=== PATIENT | male | born 1985 | race African-American/Black ===

== ENCOUNTER 2019-12-05 23:24 | Emergency (ER) | payer MEDICAID ==
[~2019-12-05] VITALS: Ht 170.2 cm; Wt 79.4 kg
[2019-12-05 23:44] VITALS: BP 147/95
[2019-12-06 00:48] LABS: Urine Bacteria FEW /hpf (None Seen); Urine Blood Negative /uL (Negative); Urine Mucus FEW (None Seen); Urine Specific Gravity 1.026 (1.001-1.035); Urine WBC 52 /hpf (0 - 3)
[2019-12-06 01:02] LABS: Alcohol, Urine < 3.0 mg/dL (0-10); Amphetamine Screen, Urine NEGATIVE (NEGATIVE); Barbiturate Scree,Urine NEGATIVE (NEGATIVE); Benzodiazephine Screen, Urine NEGATIVE (NEGATIVE); Cannabinoid Screen, Urine NEGATIVE (NEGATIVE); Cocaine Screen, Urine NEGATIVE (NEGATIVE); Opiate Scree,Urine NEGATIVE (NEGATIVE); Phencyclidine Screen, Urine NEGATIVE (NEGATIVE)
== END 2019-12-06 05:25 | disposition left against medical advice (07) ==
LOC: ER 23:24
DX: R73.9 Hyperglycemia, unspecified (principal); R11.2 Nausea with vomiting, unspecified; Z53.21 Procedure and treatment not carried out due to patient leaving prior to being seen by health care provider
CPT/HCPCS: 80307; 81001; 82962

== ENCOUNTER 2020-01-05 22:19 | Emergency (ER) | payer MEDICAID ==
[~2020-01-05] VITALS: Ht 170.2 cm; Wt 79.4 kg
[2020-01-05 22:44] VITALS: BP 134/89
[2020-01-05 23:41] LABS: Basophils # (auto) 0 10 ^3/uL (0-0.2); Basophils % (auto) 0.5 % (0.0-2.0); Eosinophils # (auto) 0 10 ^3/uL (0-0.8); Eosinophils % (auto) 0.2 % (0.0-7.0); Hematocrit 47.1 % (41.0-53.0); Hemoglobin 15.5 g/dL (13.5-17.5); Lymphocytes # (auto) 1.4 10 ^3/uL (0.4-5.4); Lymphocytes % (auto) 17.2 % (10.0-50.0); Mean Corpuscular Hemoglobin 29.7 pg (28.0-32.0); Monocytes # (auto) 0.5 10 ^3/uL (0-1.3); Monocytes % (auto) 5.5 % (0.0-12.0); Neutrophils # (auto) 6.3 10 ^3/uL (1.6-8.6); Neutrophils % (auto) 76.6 % (37.0-80.0); Nucleated Red Blood Cells % 0.1 %; Platelet Count (auto) 111 10^3/uL (140-450); Red Blood Cells 5.24 10^6/uL (4.5-5.90); Red Cell Distribution Width 14.5 % (11.8-14.3); White Blood Cell 8.3 10^3/uL (4.4-10.8)
[2020-01-06] LABS: Albumin 4.2 g/dL (3.4-5.0); Amylase 61 U/L (25-115); Anion Gap 6 (5-15); Blood Urea Nitrogen 7 mg/dL (7-18); Calcium 7.8 mg/dL (8.5-10.1); Carbon Dioxide 28 mmol/L (21-32); Chloride 104 mmol/L (98-107); Glucose 200 mg/dL (74-106); Lipase 43 U/L (73-393); Magnesium 2.3 mg/dL (1.6-2.6); Potassium 3.9 mmol/L (3.5-5.1); Sodium 138 mmol/L (136-145)
[2020-01-06 00:05] LABS: BUN/Creatinine Ratio 7.1
[2020-01-06 00:06] LABS: Alanine Aminotransferase 21 U/L (16-61); Alkaline Phosphatase 81 U/L (45-117); Aspartate Aminotransferase 9 U/L (15-37); Bilirubin, Total 0.4 mg/dL (0.2-1.0); GFR African American 112 mL/min; GFR Non-African American 93 mL/min; Total Protein 8.3 g/dL (6.4-8.2)
== END 2020-01-05 22:28 | disposition left against medical advice (07) ==
LOC: ER 22:20
DX: R11.2 Nausea with vomiting, unspecified (principal); Z53.21 Procedure and treatment not carried out due to patient leaving prior to being seen by health care provider
CPT/HCPCS: 36415; 80053; 82150; 82962; 83690; 83735; 84484; 85025

== ENCOUNTER → 2020-01-09 | Emergency (ER) | payer MEDICAID ==
[~2020-01-09] VITALS: Ht 170.2 cm; Wt 83.9 kg
[~2020-01-09] MED LIST: ONDANSETRON ODT 4 MG TAB PO ONE; SODIUM CHLORIDE 0.9% 2,000 ML IV ONE
[2020-01-09 22:42] VITALS: BP 138/95
[2020-01-10] LABS: Basophils # (auto) 0.1 10 ^3/uL (0-0.2); Basophils % (auto) 0.6 % (0.0-2.0); Eosinophils # (auto) 0 10 ^3/uL (0-0.8); Eosinophils % (auto) 0.3 % (0.0-7.0); Hematocrit 43.4 % (41.0-53.0); Hemoglobin 14.6 g/dL (13.5-17.5); Lymphocytes # (auto) 2.1 10 ^3/uL (0.4-5.4); Lymphocytes % (auto) 20.9 % (10.0-50.0); Mean Corpuscular Hemoglobin 29.8 pg (28.0-32.0); Mean Corpuscular Hgb Conc. 33.6 g/dL (32.0-36.0); Mean Corpuscular Volume 88.8 fL (80.0-100.0); Monocytes # (auto) 0.6 10 ^3/uL (0-1.3); Monocytes % (auto) 5.6 % (0.0-12.0); Neutrophils # (auto) 7.3 10 ^3/uL (1.6-8.6); Neutrophils % (auto) 72.6 % (37.0-80.0); Platelet Count (auto) 117 10^3/uL (140-450); Red Blood Cells 4.88 10^6/uL (4.5-5.90); Red Cell Distribution Width 14.1 % (11.8-14.3)
[2020-01-10 00:19] LABS: Albumin 3.8 g/dL (3.4-5.0); BUN/Creatinine Ratio 6.6; Calcium 7.7 mg/dL (8.5-10.1); Potassium 3.4 mmol/L (3.5-5.1)
[2020-01-10 00:22] LABS: Bilirubin, Total 0.5 mg/dL (0.2-1.0); Total Protein 7.9 g/dL (6.4-8.2)
== END | disposition home or self-care (01) ==
LOC: ER 22:21
DX: T67.5XXA Heat exhaustion, unspecified, initial encounter (principal); R11.2 Nausea with vomiting, unspecified; E86.0 Dehydration; E11.9 Type 2 diabetes mellitus without complications; X58.XXXA Exposure to other specified factors, initial encounter; Y93.89 Activity, other specified; Y92.89 Other specified places as the place of occurrence of the external cause; Y99.8 Other external cause status
CPT/HCPCS: 36415; 80053; 82550; 82962; 85025; 96360; 99283; J7030; Q0162; 93005

== ENCOUNTER 2020-12-06 16:33 | Inpatient (IN) | payer MEDICAID ==
[~2020-12-06] VITALS: Ht 170.2 cm; Wt 78.7 kg
[2020-12-06 17:27] LABS: Urine Bacteria NONE SEEN /hpf (None Seen); Urine Blood Negative /uL (Negative); Urine Mucus FEW (None Seen); Urine Specific Gravity 1.035 (1.001-1.035); Urine WBC 28 /hpf (0 - 3)
[2020-12-06 17:39] LABS: Amphetamine Screen, Urine NEGATIVE (NEGATIVE); Barbiturate Scree,Urine NEGATIVE (NEGATIVE); Benzodiazephine Screen, Urine NEGATIVE (NEGATIVE); Cannabinoid Screen, Urine POSITIVE (NEGATIVE); Cocaine Screen, Urine NEGATIVE (NEGATIVE); Opiate Scree,Urine NEGATIVE (NEGATIVE); Phencyclidine Screen, Urine NEGATIVE (NEGATIVE)
[2020-12-06] MEDS ORDERED: ONDANSETRON HCL 4 MG/2 ML VIAL IV ONE (18:00)
[2020-12-06 18:17] LABS: Basophils # (auto) 0.1 10 ^3/uL (0-0.2); Basophils % (auto) 0.4 % (0.0-2.0); Eosinophils # (auto) 0.1 10 ^3/uL (0-0.8); Eosinophils % (auto) 0.5 % (0.0-7.0); Hemoglobin 15.3 g/dL (13.5-17.5); Lymphocytes # (auto) 1.7 10 ^3/uL (0.4-5.4); Lymphocytes % (auto) 11.3 % (10.0-50.0); Mean Corpuscular Hemoglobin 29.6 pg (28.0-32.0); Mean Corpuscular Hgb Conc. 33.3 g/dL (32.0-36.0); Monocytes % (auto) 6.9 % (0.0-12.0); Neutrophils # (auto) 12.1 10 ^3/uL (1.6-8.6); Neutrophils % (auto) 80.9 % (37.0-80.0); Red Blood Cells 5.17 10^6/uL (4.5-5.90); Red Cell Distribution Width 14.2 % (11.8-14.3)
[2020-12-06 18:33] LABS: BUN/Creatinine Ratio 6.7; Calcium 8.3 mg/dL (8.5-10.1); Potassium 3.7 mmol/L (3.5-5.1)
[2020-12-06 18:42] LABS: Total Protein 8.5 g/dL (6.4-8.2)
[2020-12-06] MEDS ORDERED: SODIUM CHLORIDE 0.9% 1,000 ML IV ONE (19:15)
[2020-12-06] MEDS ORDERED: cefTRIAXone 1GM/50ML D5W 50 ML IV ONE (19:15)
[2020-12-06] MEDS ORDERED: ACETAMINOPHEN 325 MG TAB PO PRN (22:30)
[2020-12-06] MEDS ORDERED: MORPHINE SULF INJ 2 MG/ML SYRINGE 1ML IV PRN ×2 (22:30)
[2020-12-06] MEDS ORDERED: DEXTROSE (50%) 50ML SYRG IV PRN (22:30)
[2020-12-06] MEDS ORDERED: NITROGLYCERIN 0.4 MG SL TAB SL PRN (22:30)
[2020-12-06] MEDS ORDERED: HYDROcodone-ACET 5/325MG TAB PO PRN (22:30)
[2020-12-06] MEDS: SODIUM CHLORIDE 0.9% 1,000 ML IV SCH (22:47)
[2020-12-06 23:29] VITALS: BP 144/77
[2020-12-06 23:54] VITALS: BP 144/77
[2020-12-06] MEDS ORDERED: METF-869 PO (23:57)
[2020-12-06] MEDS ORDERED: GLIP10TA9 PO (23:57)
[2020-12-07 05:00] VITALS: BP 128/80
[2020-12-07 05:37] LABS: Basophils # (auto) 0 10 ^3/uL (0-0.2); Basophils % (auto) 0.4 % (0.0-2.0); Eosinophils # (auto) 0.1 10 ^3/uL (0-0.8); Eosinophils % (auto) 1.2 % (0.0-7.0); Hematocrit 42.1 % (41.0-53.0); Hemoglobin 14.3 g/dL (13.5-17.5); Lymphocytes # (auto) 2.5 10 ^3/uL (0.4-5.4); Lymphocytes % (auto) 22.8 % (10.0-50.0); Mean Corpuscular Hemoglobin 30.1 pg (28.0-32.0); Mean Corpuscular Hgb Conc. 33.9 g/dL (32.0-36.0); Mean Corpuscular Volume 88.9 fL (80.0-100.0); Monocytes # (auto) 0.9 10 ^3/uL (0-1.3); Monocytes % (auto) 7.8 % (0.0-12.0); Neutrophils # (auto) 7.5 10 ^3/uL (1.6-8.6); Neutrophils % (auto) 67.8 % (37.0-80.0); Nucleated Red Blood Cells % 0.1 %; Red Blood Cells 4.73 10^6/uL (4.5-5.90); Red Cell Distribution Width 13.9 % (11.8-14.3); White Blood Cell 11.1 10^3/uL (4.4-10.8)
[2020-12-07 05:57] LABS: Potassium 3.4 mmol/L (3.5-5.1)
[2020-12-07 06:07] LABS: Albumin 3.4 g/dL (3.4-5.0); BUN/Creatinine Ratio 7.9; Calcium 7.4 mg/dL (8.5-10.1); Total Protein 7.4 g/dL (6.4-8.2)
[2020-12-07] MEDS: ACCU-CHEK COMFORT CURVE STRIP VI SCH ×4 (06:12→22:08)
[2020-12-07] MEDS: InsuLIN REG 1unit/0.01ml Soln (100units/ml) SC SCH ×3 (06:12→17:00)
[2020-12-07] MEDS: SODIUM CHLORIDE 0.9% 1,000 ML IV SCH ×3 (06:34→17:10)
[2020-12-07 09:00] VITALS: BP 130/81
[2020-12-07] MEDS: ONDANSETRON HCL 4 MG/2 ML VIAL IV PRN ×2 (10:02→20:08)
[2020-12-07] MEDS: cefTRIAXone 1GM/50ML D5W 50 ML IV SCH (10:02)
[2020-12-07] MEDS: FAMOTIDINE (10MG/ML) 2ML VL IV SCH (10:02)
[2020-12-07 13:00] VITALS: BP 138/77
[2020-12-07 17:00] VITALS: BP 133/55
[2020-12-07 22:00] VITALS: BP 133/85
[2020-12-07] MEDS ORDERED: InsuLIN REG 1unit/0.01ml Soln (100units/ml) SC SCH (22:00)
[2020-12-07] MEDS ORDERED: TEMAZEPAM 15 MG CAP PO PRN (22:30)
[2020-12-07] MEDS ORDERED: METOCLOPRAMIDE HCL 5MG/ml INJ 2ml VIAL IV PRN (22:30)
[2020-12-08] MEDS: SODIUM CHLORIDE 0.9% 1,000 ML IV SCH ×3 (02:03→09:10)
[2020-12-08 05:00] VITALS: BP 128/70
[2020-12-08 05:33] LABS: Basophils # (auto) 0 10 ^3/uL (0-0.2); Basophils % (auto) 0.4 % (0.0-2.0); Eosinophils # (auto) 0.1 10 ^3/uL (0-0.8); Eosinophils % (auto) 0.8 % (0.0-7.0); Hematocrit 40.3 % (41.0-53.0); Hemoglobin 13.7 g/dL (13.5-17.5); Lymphocytes # (auto) 2.3 10 ^3/uL (0.4-5.4); Lymphocytes % (auto) 23.8 % (10.0-50.0); Mean Corpuscular Hemoglobin 30.4 pg (28.0-32.0); Mean Corpuscular Hgb Conc. 34.1 g/dL (32.0-36.0); Mean Corpuscular Volume 89.2 fL (80.0-100.0); Monocytes # (auto) 0.8 10 ^3/uL (0-1.3); Monocytes % (auto) 7.8 % (0.0-12.0); Neutrophils # (auto) 6.5 10 ^3/uL (1.6-8.6); Neutrophils % (auto) 67.2 % (37.0-80.0); Nucleated Red Blood Cells % 0.1 %; Red Blood Cells 4.52 10^6/uL (4.5-5.90); Red Cell Distribution Width 14.2 % (11.8-14.3); White Blood Cell 9.7 10^3/uL (4.4-10.8)
[2020-12-08] MEDS: ACCU-CHEK COMFORT CURVE STRIP VI SCH ×2 (06:30→11:30)
[2020-12-08] MEDS: InsuLIN REG 1unit/0.01ml Soln (100units/ml) SC SCH ×2 (06:31→11:30)
[2020-12-08 09:00] VITALS: BP 136/91
[2020-12-08] MEDS: cefTRIAXone 1GM/50ML D5W 50 ML IV SCH (09:09)
[2020-12-08] MEDS: FAMOTIDINE (10MG/ML) 2ML VL IV SCH (09:10)
[2020-12-08 11:24] VITALS: BP 136/91
[2020-12-08 12:39] VITALS: BP 131/82
== END 2020-12-08 14:23 | disposition home or self-care (01) | DRG 720 ==
LOC: ER 16:33 → TELE-WESTW 22:16
PROVIDERS: ADMIT Nurse Practitioner Family; ATTEND Nurse Practitioner Family
DX: A41.9 Sepsis, unspecified organism (principal); D69.6 Thrombocytopenia, unspecified; E11.65 Type 2 diabetes mellitus with hyperglycemia; N10 Acute pyelonephritis; E86.0 Dehydration; F12.10 Cannabis abuse, uncomplicated; N28.81 Hypertrophy of kidney; Z20.822 Contact with and (suspected) exposure to COVID-19; Z82.49 Family history of ischemic heart disease and other diseases of the circulatory system; Z87.442 Personal history of urinary calculi; Z71.51 Drug abuse counseling and surveillance of drug abuser
CPT/HCPCS: 36415; 74176; 80053; 80307; 81001; 82962; 83036; 83735; 85025; 87086; 87426; 96361; 96365; 96375; G0378; J0696; J1815; J2405; J3490

== ENCOUNTER 2021-03-21 08:14 | Emergency (ER) | payer MEDICAID ==
[~2021-03-21] VITALS: Ht 170.2 cm; Wt 84.4 kg
[~2021-03-21 08:14] MED LIST changes: +GLIP10TA9 PO; +METF-869 PO; -ONDANSETRON ODT 4 MG TAB PO ONE; -SODIUM CHLORIDE 0.9% 2,000 ML IV ONE
[2021-03-21 10:03] VITALS: BP 123/75
== END 2021-03-21 11:53 | disposition home or self-care (01) ==
LOC: ER 08:14
DX: U07.1 COVID-19 (principal); J06.9 Acute upper respiratory infection, unspecified; R05.9 Cough, unspecified; R09.81 Nasal congestion; E11.9 Type 2 diabetes mellitus without complications
CPT/HCPCS: 36415; 71045; 87426

== ENCOUNTER 2021-03-21 18:46 | Emergency (ER) | payer MEDICAID ==
[~2021-03-21] VITALS: Ht 170.2 cm; Wt 87.1 kg
[2021-03-21] MEDS ORDERED: ONDANSETRON ODT 4 MG TAB PO ONE (21:00)
[2021-03-22 00:52] LABS: Urine Bacteria FEW /hpf (None Seen); Urine Blood Negative /uL (Negative); Urine Mucus FEW (None Seen); Urine Specific Gravity 1.032 (1.001-1.035); Urine WBC 1 /hpf (0 - 3)
[2021-03-22 05:47] VITALS: BP 121/78
== END 2021-03-22 05:55 | disposition home or self-care (01) ==
LOC: ER 18:46
DX: U07.1 COVID-19 (principal); R11.2 Nausea with vomiting, unspecified; R19.7 Diarrhea, unspecified
CPT/HCPCS: 36415; 81001; 87426; 99283; Q0162

== ENCOUNTER 2021-03-23 03:16 | Emergency (ER) | payer MEDICAID ==
[~2021-03-23] VITALS: Ht 170.2 cm; Wt 87.1 kg
[2021-03-23 03:17] VITALS: BP 148/113
== END 2021-03-23 09:45 | disposition left against medical advice (07) ==
LOC: ER 03:16
DX: R11.2 Nausea with vomiting, unspecified (principal); R19.7 Diarrhea, unspecified; R10.9 Unspecified abdominal pain; Z53.21 Procedure and treatment not carried out due to patient leaving prior to being seen by health care provider

== ENCOUNTER 2021-04-10 10:10 | Emergency (ER) | payer MEDICAID ==
[~2021-04-10] VITALS: Ht 170.2 cm; Wt 78.0 kg
[2021-04-10 10:22] VITALS: BP 159/100
== END 2021-04-10 13:27 | disposition left against medical advice (07) ==
LOC: ER 10:10
DX: R11.2 Nausea with vomiting, unspecified (principal); R10.9 Unspecified abdominal pain; Z53.21 Procedure and treatment not carried out due to patient leaving prior to being seen by health care provider

== ENCOUNTER 2021-05-14 18:51 | Emergency (ER) | payer MEDICAID ==
[~2021-05-14] VITALS: Ht 170.2 cm; Wt 78.0 kg
[2021-05-14 18:59] VITALS: BP 133/89
== END 2021-05-14 23:29 | disposition left against medical advice (07) ==
LOC: ER 18:51
DX: R11.2 Nausea with vomiting, unspecified (principal); Z53.21 Procedure and treatment not carried out due to patient leaving prior to being seen by health care provider

== ENCOUNTER 2021-09-21 02:18 | Emergency (ER) | payer MEDICAID ==
[~2021-09-21] VITALS: Ht 170.2 cm; Wt 82.6 kg
[2021-09-21 05:20] LABS: Urine Bacteria FEW /hpf (None Seen); Urine Blood Negative /uL (Negative); Urine Hyaline Cast FEW /lpf (0 - 2); Urine Mucus FEW (None Seen); Urine Specific Gravity 1.031 (1.001-1.035); Urine WBC 4 /hpf (0 - 3)
[2021-09-21] MEDS ORDERED: ONDANSETRON HCL 4 MG/2 ML VIAL IV ONE (07:45)
[2021-09-21] MEDS ORDERED: SODIUM CHLORIDE 0.9% 1,000 ML IVB ONE (07:45)
[2021-09-21 08:23] LABS: Basophils # (auto) 0.1 10 ^3/uL (0-0.2); Basophils % (auto) 0.8 % (0.0-2.0); Eosinophils # (auto) 0 10 ^3/uL (0-0.8); Eosinophils % (auto) 0.5 % (0.0-7.0); Hematocrit 44.9 % (41.0-53.0); Hemoglobin 15.4 g/dL (13.5-17.5); Lymphocytes # (auto) 1.9 10 ^3/uL (0.4-5.4); Lymphocytes % (auto) 18.9 % (10.0-50.0); Mean Corpuscular Hemoglobin 30.1 pg (28.0-32.0); Mean Corpuscular Hgb Conc. 34.2 g/dL (32.0-36.0); Monocytes # (auto) 0.6 10 ^3/uL (0-1.3); Monocytes % (auto) 5.4 % (0.0-12.0); Neutrophils # (auto) 7.6 10 ^3/uL (1.6-8.6); Neutrophils % (auto) 74.4 % (37.0-80.0); Nucleated Red Blood Cells % 0.1 %; Red Blood Cells 5.11 10^6/uL (4.5-5.90); Red Cell Distribution Width 14.5 % (11.8-14.3); White Blood Cell 10.3 10^3/uL (4.4-10.8)
[2021-09-21 08:40] LABS: BUN/Creatinine Ratio 9.2; Calcium 8.4 mg/dL (8.5-10.1); Magnesium 2.2 mg/dL (1.6-2.6); Potassium 4.1 mmol/L (3.5-5.1)
[2021-09-21 09:23] LABS: Amphetamine Screen, Urine NEGATIVE (NEGATIVE); Barbiturate Scree,Urine NEGATIVE (NEGATIVE); Benzodiazephine Screen, Urine NEGATIVE (NEGATIVE); Cocaine Screen, Urine NEGATIVE (NEGATIVE); Opiate Scree,Urine NEGATIVE (NEGATIVE); Phencyclidine Screen, Urine NEGATIVE (NEGATIVE)
[2021-09-21 09:33] LABS: Cannabinoid Screen, Urine POSITIVE (NEGATIVE)
[2021-09-21 11:03] VITALS: BP 137/70
== END 2021-09-21 11:07 | disposition home or self-care (01) ==
LOC: ER 02:18
DX: R11.2 Nausea with vomiting, unspecified (principal); E11.9 Type 2 diabetes mellitus without complications; D69.6 Thrombocytopenia, unspecified; I10 Essential (primary) hypertension; F17.210 Nicotine dependence, cigarettes, uncomplicated; Z79.899 Other long term (current) drug therapy
CPT/HCPCS: 36415; 80048; 80307; 81001; 83690; 83735; 85025; J2405

== ENCOUNTER 2021-11-18 00:46 | Emergency (ER) | payer MEDICAID ==
[~2021-11-18] VITALS: Ht 170.2 cm; Wt 78.0 kg
[2021-11-18 00:46] VITALS: BP 158/86
[2021-11-18 01:41] LABS: Basophils # (auto) 0 10 ^3/uL (0-0.2); Basophils % (auto) 0.5 % (0.0-2.0); Eosinophils # (auto) 0 10 ^3/uL (0-0.8); Eosinophils % (auto) 0.3 % (0.0-7.0); Hematocrit 44.9 % (41.0-53.0); Hemoglobin 14.9 g/dL (13.5-17.5); Lymphocytes # (auto) 1.3 10 ^3/uL (0.4-5.4); Lymphocytes % (auto) 14.9 % (10.0-50.0); Mean Corpuscular Hemoglobin 29.5 pg (28.0-32.0); Mean Corpuscular Hgb Conc. 33.2 g/dL (32.0-36.0); Mean Corpuscular Volume 89.1 fL (80.0-100.0); Monocytes # (auto) 0.2 10 ^3/uL (0-1.3); Monocytes % (auto) 2.6 % (0.0-12.0); Neutrophils # (auto) 7.3 10 ^3/uL (1.6-8.6); Neutrophils % (auto) 81.7 % (37.0-80.0); Nucleated Red Blood Cells % 0.1 %; Red Blood Cells 5.03 10^6/uL (4.5-5.90); Red Cell Distribution Width 14.5 % (11.8-14.3)
[2021-11-18 02:03] LABS: Albumin 3.8 g/dL (3.4-5.0); BUN/Creatinine Ratio 8.2; Calcium 8.5 mg/dL (8.5-10.1); Potassium 4.1 mmol/L (3.5-5.1)
[2021-11-18 02:06] LABS: Bilirubin, Total 0.4 mg/dL (0.2-1.0); Total Protein 7.9 g/dL (6.4-8.2)
[2021-11-18 02:23] LABS: Urine Bacteria NONE SEEN /hpf (None Seen); Urine Blood Negative /uL (Negative); Urine Mucus FEW (None Seen); Urine Specific Gravity 1.024 (1.001-1.035); Urine WBC 64 /hpf (0 - 3)
== END 2021-11-18 04:36 | disposition left against medical advice (07) ==
LOC: ER 00:46
DX: R10.10 Upper abdominal pain, unspecified (principal); R11.2 Nausea with vomiting, unspecified; Z53.21 Procedure and treatment not carried out due to patient leaving prior to being seen by health care provider
CPT/HCPCS: 36415; 80053; 81001; 85025

== ENCOUNTER 2022-02-04 02:58 | Emergency (ER) | payer MEDICAID | END 2022-02-04 03:54 | disposition left against medical advice (07) | LOC: ER 02:58 | DX: R10.9 Unspecified abdominal pain (principal); Z53.21 Procedure and treatment not carried out due to patient leaving prior to being seen by health care provider ==

== ENCOUNTER 2022-02-27 19:00 | Emergency (ER) | payer MEDICAID ==
[~2022-02-27] VITALS: Ht 170.2 cm; Wt 80.1 kg
[2022-02-27 19:36] VITALS: BP 149/89
[2022-02-27 23:41] LABS: Urine Bacteria NONE SEEN /hpf (None Seen); Urine Blood Negative /uL (Negative); Urine Mucus FEW (None Seen); Urine Specific Gravity 1.024 (1.001-1.035); Urine WBC 32 /hpf (0 - 3)
== END 2022-02-28 00:30 | disposition left against medical advice (07) ==
LOC: ER 19:03
DX: R11.2 Nausea with vomiting, unspecified (principal); Z53.21 Procedure and treatment not carried out due to patient leaving prior to being seen by health care provider
CPT/HCPCS: 81001; 82962

== ENCOUNTER → 2022-03-24 04:38 | Emergency (ER) | payer MEDICAID ==
[~2022-03-24] VITALS: Ht 170.2 cm; Wt 86.0 kg
[2022-03-24 04:38] VITALS: BP 153/100
[~2022-03-24 04:38] MED LIST changes: +CIPR-173 PO; +ONDA-144 PO
== END | disposition left against medical advice (07) ==
LOC: ER 04:38
DX: R11.2 Nausea with vomiting, unspecified (principal); E11.9 Type 2 diabetes mellitus without complications; Z53.21 Procedure and treatment not carried out due to patient leaving prior to being seen by health care provider
CPT/HCPCS: 82962

== ENCOUNTER 2022-03-24 23:58 | Emergency (ER) | payer MEDICAID ==
[~2022-03-24] VITALS: Ht 170.2 cm; Wt 82.0 kg
[~2022-03-24 23:58] MED LIST changes: -CIPR-173 PO; -ONDA-144 PO
[2022-03-25 00:08] VITALS: BP 125/85
[2022-03-25 01:03] LABS: Basophils # (auto) 0.1 10 ^3/uL (0-0.2); Basophils % (auto) 0.8 % (0.0-2.0); Eosinophils # (auto) 0.1 10 ^3/uL (0-0.8); Hematocrit 44.6 % (41.0-53.0); Lymphocytes # (auto) 2.2 10 ^3/uL (0.4-5.4); Lymphocytes % (auto) 30.8 % (10.0-50.0); Mean Corpuscular Hemoglobin 29.6 pg (28.0-32.0); Mean Corpuscular Hgb Conc. 33.6 g/dL (32.0-36.0); Monocytes # (auto) 0.6 10 ^3/uL (0-1.3); Monocytes % (auto) 8.8 % (0.0-12.0); Neutrophils # (auto) 4.3 10 ^3/uL (1.6-8.6); Neutrophils % (auto) 58.6 % (37.0-80.0); Nucleated Red Blood Cells % 0.3 %; Red Blood Cells 5.07 10^6/uL (4.5-5.90); Red Cell Distribution Width 14.6 % (11.8-14.3); White Blood Cell 7.3 10^3/uL (4.4-10.8)
[2022-03-25 01:13] LABS: Albumin 3.7 g/dL (3.4-5.0); BUN/Creatinine Ratio 10.1; Calcium 8.3 mg/dL (8.5-10.1); Potassium 3.7 mmol/L (3.5-5.1)
[2022-03-25 01:16] LABS: Bilirubin, Total 0.6 mg/dL (0.2-1.0); Total Protein 7.7 g/dL (6.4-8.2)
[2022-03-26] MEDS ORDERED: CIPR-173 PO (07:50)
[2022-03-26] MEDS ORDERED: ONDA-144 PO (07:50)
== END 2022-03-25 02:21 | disposition left against medical advice (07) ==
LOC: ER 03-25 00:04
DX: R11.0 Nausea (principal); E11.65 Type 2 diabetes mellitus with hyperglycemia; Z53.21 Procedure and treatment not carried out due to patient leaving prior to being seen by health care provider
CPT/HCPCS: 36415; 80053; 85025

== ENCOUNTER 2022-03-26 03:57 | Emergency (ER) | payer MEDICAID ==
[~2022-03-26] VITALS: Ht 170.2 cm; Wt 87.0 kg
[2022-03-26 04:11] VITALS: BP 145/117
[2022-03-26 05:01] LABS: Urine Bacteria NONE SEEN /hpf (None Seen); Urine Mucus FEW (None Seen); Urine WBC 48 /hpf (0 - 3)
[2022-03-26 05:19] LABS: Urine Blood Normal /uL (Negative); Urine Specific Gravity 1.015 (1.001-1.035)
[2022-03-26 06:08] LABS: Basophils # (auto) 0.1 10 ^3/uL (0-0.2); Eosinophils # (auto) 0.1 10 ^3/uL (0-0.8); Eosinophils % (auto) 1.2 % (0.0-7.0); Hematocrit 44.7 % (41.0-53.0); Hemoglobin 15.2 g/dL (13.5-17.5); Lymphocytes # (auto) 1.8 10 ^3/uL (0.4-5.4); Lymphocytes % (auto) 33.9 % (10.0-50.0); Mean Corpuscular Hemoglobin 30.2 pg (28.0-32.0); Mean Corpuscular Hgb Conc. 34.1 g/dL (32.0-36.0); Mean Corpuscular Volume 88.5 fL (80.0-100.0); Monocytes # (auto) 0.4 10 ^3/uL (0-1.3); Monocytes % (auto) 7.8 % (0.0-12.0); Neutrophils % (auto) 56.1 % (37.0-80.0); Nucleated Red Blood Cells % 0.1 %; Red Blood Cells 5.05 10^6/uL (4.5-5.90); Red Cell Distribution Width 14.2 % (11.8-14.3); White Blood Cell 5.3 10^3/uL (4.4-10.8)
[2022-03-26] MEDS ORDERED: SODIUM CHLORIDE 0.9% 1,000 ML IV ONE (06:45)
[2022-03-26] MEDS ORDERED: ONDANSETRON ODT 4 MG TAB PO ONE (06:45)
[2022-03-26 07:50] LABS: Calcium 8.6 mg/dL (8.5-10.1); Potassium 4.1 mmol/L (3.5-5.1)
[2022-03-26] MEDS ORDERED: CIPR-173 PO (07:50)
[2022-03-26] MEDS ORDERED: ONDA-144 PO (07:50)
[2022-03-26 07:54] LABS: BUN/Creatinine Ratio 7.9; Bilirubin, Total 0.5 mg/dL (0.2-1.0); Total Protein 8.3 g/dL (6.4-8.2)
== END 2022-03-26 09:20 | disposition home or self-care (01) ==
LOC: ER 03:57
DX: E11.65 Type 2 diabetes mellitus with hyperglycemia (principal); N39.0 Urinary tract infection, site not specified; I10 Essential (primary) hypertension; F17.210 Nicotine dependence, cigarettes, uncomplicated; Z79.899 Other long term (current) drug therapy; Z79.2 Long term (current) use of antibiotics
CPT/HCPCS: 36415; 80053; 81001; 85025